=== PATIENT | male | born 1990 | race Caucasian/White ===

== ENCOUNTER 2021-10-06 12:32 | Emergency (ER) | payer BC, SELFPAY ==
[2021-10-06 12:43] VITALS: BP 146/77; PULSE 82; RESP 16; TEMP 36.6; O2SAT 100
--- NOTE | 2021-10-06 12:58 | ED.GENADULT ---
HPI - General Adult General Chief complaint: Animal Bite Stated complaint: Rabies Shot Request, CDC Sent Time Seen by Provider: 10/06/21 12:46 Source: RN notes reviewed History of Present Illness HPI narrative: Patient presents emergency department from home for bat exposure. The patient states that last week they are staying in a cabin they were there for 2 days and on the third day that her tripping and milligram looked up and there were several bats present. Patient denies any known bites. He contacted the [facility] and was recommended come the ED for rabies vaccination he denies any fevers or chills chest pain shortness of breath or any other symptoms is never received the rabies vaccine before Related Data Home Medications Medication Instructions Recorded Confirmed No Home Medications 10/06/21 Allergies Allergy/AdvReac Type Severity Reaction Status Date / Time No Known Allergies Allergy Mild Verified 10/06/21 12:46 Review of Systems Review of Systems: Gen.: Denies fevers or chills ENT: Denies congestion Respiratory: Denies shortness of breath or cough CV: Denies chest pain GI: Denies abdominal pain nausea, emesis Musculoskeletal: Denies back pain or muscle pain Neuro: Denies numbness, tingling, weakness or focal weakness Skin: Denies rash Except as documented, all other systems reviewed and negative PMFSH Past Medical History Medical History (Updated 10/06/21 @ 13:01 by Rigo Muñoz DO) Patient denies significant medical history Social History Social History (Updated 10/06/21 @ 12:59 by Rigo Muñoz DO) Smoking status: Current every day smoker Exam Narrative: APPEARANCE: No acute distress, nontoxic, resting in bed EYES: EOMI HEENT: Normocephalic, atraumatic, OMM RESPIRATORY: No respiratory distress Clear to auscultation bilaterally with no rhonchi wheezing or rales. CARDIOVASCULAR: Regular rate and rhythm without murmurs rubs or gallops. ABDOMINAL: Soft, nontender, nondistended, no rebound or guarding MUSCULOSKELETAl: Moves all extremities. NEURO: Awake and alert. Following commands, speech normal, no focal deficits SKIN:: Warm, dry. No rashes lesions or abrasions PSYCHIATRIC: Normal affect/mood, Course Course Emergency Course: Contacted our infectious disease control Claudine who came down to see the patient. Recommends patient receive both the rabies vaccine and immunoglobulin. She will follow-up with the patient to set the patient up for his remaining rabies vaccinations on 10/09/2021 10/13/2021 and 10/20/2021 Discussed with patient results of workup and diagnosis. Discussed need for follow-up with primary care, proper use of medication, and reasons to return to the emergency department. Patient understands and agrees to current treatment plan Vital Signs Vital signs: Vital Signs Temperature 97.8 F 10/06/21 12:43 Pulse Rate 82 10/06/21 12:43 Respiratory Rate 16 10/06/21 12:43 Blood Pressure 146/77 H 10/06/21 12:43 Pulse Oximetry 100 10/06/21 12:43 Oxygen Delivery Room Air 10/06/21 12:43 Temperature 97.8 F 10/06/21 12:43 Pulse Rate 82 10/06/21 12:43 Respiratory Rate 16 10/06/21 12:43 Blood Pressure 146/77 H 10/06/21 12:43 Pulse Oximetry 100 10/06/21 12:43 Oxygen Delivery Room Air 10/06/21 12:43 Medical Decision Making Vital Signs Vital Signs: Vital Signs Temperature 97.8 F 10/06/21 12:43 Pulse Rate 82 10/06/21 12:43 Respiratory Rate 16 10/06/21 12:43 Blood Pressure 146/77 H 10/06/21 12:43 Pulse Oximetry 100 10/06/21 12:43 Oxygen Delivery Room Air 10/06/21 12:43 Temperature 97.8 F 10/06/21 12:43 Pulse Rate 82 10/06/21 12:43 Respiratory Rate 16 10/06/21 12:43 Blood Pressure 146/77 H 10/06/21 12:43 Pulse Oximetry 100 10/06/21 12:43 Oxygen Delivery Room Air 10/06/21 12:43 Discharge Plan Discharge Clinical Impression: Rabies contact, Exposure to bat without known bite Patient Dis
[2021-10-06] MEDS: RABIES IMMUNE GLOBULIN/PF 1,500 UNITS/5 ML VIAL 1360 UNITS IM (13:35)
[2021-10-06] MEDS: RABIES VACCINE (RABAVERT) 2.5 UNITS VIAL IM (13:36)
== END 2021-10-06 14:13 | disposition home or self-care (01) ==
LOC: ANHED 13:13
PROVIDERS: Emergency Provider Emergency Medicine; PCP Family Medicine Adolescent Medicine
DX: Z20.3 Contact with and (suspected) exposure to rabies (principal); Z29.14 Encounter for prophylactic rabies immune globulin; Z23 Encounter for immunization
CPT/HCPCS: 90471; 90675; 96372; 99283; 90375

== ENCOUNTER 2021-10-20 07:00 | Outpatient (RCR) | payer BC, SELFPAY | END 2022-01-07 23:59 | disposition home or self-care (01) | LOC: ANHVASCINF 07:00 | PROVIDERS: PCP Family Medicine Adolescent Medicine; Visit Provider Emergency Medicine | DX: Z20.3 Contact with and (suspected) exposure to rabies (principal) | CPT/HCPCS: 90471; 90675 ==